=== PATIENT | female | born 1940 | race Caucasian/White ===

== ENCOUNTER 2020-12-25 01:44 | Emergency (ER) | payer OTHER, MEDICAID ==
[~2020-12-25] VITALS: Ht 152.4 cm; Wt 49.0 kg
[~2020-12-25 01:44] MED LIST: BENA40TA9 PO; CITA10TA11 PO; DOCU-299 PO; DONE10TA10 PO; LIP80 PO; MEMA10TA PO; QUET25TA PO; VITC500 PO; VITD400 PO; ZINC220C28 PO
[2020-12-25 01:53] VITALS: BP 125/60
[2020-12-25 12:28] VITALS: BP 137/69
== END 2020-12-25 12:26 ==
LOC: MED 01:44
DX: S00.83XA Contusion of other part of head, initial encounter (principal); F03.90 Unspecified dementia, unspecified severity, without behavioral disturbance, psychotic disturbance, mood disturbance, and anxiety; I10 Essential (primary) hypertension; W18.39XA Other fall on same level, initial encounter; Y93.89 Activity, other specified; Y92.89 Other specified places as the place of occurrence of the external cause; Y99.8 Other external cause status
CPT/HCPCS: 70450; 99284